=== PATIENT | female | born 1950 | race Caucasian/White ===

== ENCOUNTER → 2017-06-17 | Outpatient (CLI) | payer MEDICARE ==
[2017-06-17 16:44] LABS: Appearance, Urine Clear (Clear); Bilirubin, Urine Neg (Neg); Blood, Urine 2+ (Neg); Color, Urine Yellow (P-Yellow); Glucose Qualitative, Urine Neg (Neg); Ketones, Urine Neg (Neg); Leukocyte Esterase, Urine 1+ (Neg); Nitrite, Urine Pos (Neg); Protein, Urine Neg (Neg); Urobilinogen, Urine NORM (Normal)
[2017-06-17 16:51] LABS: Bacteria Many /hpf; Red Blood Cells, Urine 0-2 /hpf (0-2); Squamous Epithelial Cells Few /hpf (Few)
== END | disposition home or self-care (01) ==
LOC: LAB 15:54 → LAB SHORT 15:54
PROVIDERS: Family Medicine
DX: R31.9 Hematuria, unspecified (principal)
CPT/HCPCS: 81001; 87077; 87086; 87186

== ENCOUNTER → 2017-09-21 | Outpatient (CLI) | payer MEDICARE | END | disposition home or self-care (01) | LOC: LAB 10:30 → LAB SHORT 10:30 | DX: R10.2 Pelvic and perineal pain (principal) | CPT/HCPCS: 87086 ==

== ENCOUNTER → 2018-07-12 | Outpatient (CLI) | payer MEDICARE | END | disposition home or self-care (01) | LOC: LAB 15:41 → LAB SHORT 15:41 | DX: N39.0 Urinary tract infection, site not specified (principal) | CPT/HCPCS: 87077; 87086; 87186 ==

== ENCOUNTER → 2019-07-28 | Outpatient (CLI) | payer MEDICARE ==
[2019-07-29 10:58] LABS: G. vaginalis (DNA Probe) Negative (NEGATIVE); T. vaginalis (DNA Probe) Negative (NEGATIVE)
[2019-07-29 10:59] LABS: Candida species (DNA Probe) Positive (NEGATIVE)
== END | disposition home or self-care (01) ==
LOC: LAB 14:30 → LAB SHORT 14:30
PROVIDERS: Family Medicine
DX: R30.0 Dysuria (principal); R10.2 Pelvic and perineal pain; R35.0 Frequency of micturition; N89.8 Other specified noninflammatory disorders of vagina
CPT/HCPCS: 87086; 87480; 87510; 87660

== ENCOUNTER → 2020-11-20 | Outpatient (CLI) | payer MEDICARE | END | disposition home or self-care (01) | LOC: LAB SHORT 15:00 → LAB 15:00 | DX: N39.0 Urinary tract infection, site not specified (principal) | CPT/HCPCS: 87077; 87086; 87186 ==

== ENCOUNTER → 2020-12-10 | Outpatient (CLI) | payer MEDICARE | END | disposition home or self-care (01) | LOC: LAB 11:10 → LAB SHORT 11:10 | DX: R30.0 Dysuria (principal) | CPT/HCPCS: 87086 ==

== ENCOUNTER 2023-03-04 13:23 | Observation (INO) | payer OTHER ==
[~2023-03-04] VITALS: Ht 170.2 cm; Wt 106.4 kg
[2023-03-04] MEDS ORDERED: JARDIANCE25 MG PO (13:51)
[2023-03-04 14:18] LABS: BASOPHILS ABSOLUTE AUTO 0.05 K/mm3 (0.00-0.23); BASOPHILS PERCENT AUTO 1 % (0-2); EOSINOPHILS ABSOLUTE AUTO 0.18 K/mm3 (0.00-0.68); EOSINOPHILS PERCENT AUTO 3 % (0-6); Hematocrit 42.1 % (33.0-51.0); Hemoglobin 14.7 g/dL (11.5-16.0); IMMATURE GRAN ABSOLUTE AUTO 0.02 K/mm3 (0.00-0.10); IMMATURE GRAN PERCENT AUTO 0 % (0-1); LYMPHOCYTES ABSOLUTE AUTO 2.06 K/mm3 (0.84-5.20); LYMPHOCYTES PERCENT AUTO 31 % (21-46); MONOCYTES ABSOLUTE AUTO 0.42 K/mm3 (0.16-1.47); MONOCYTES PERCENT AUTO 6 % (4-13); Mean Corpuscular HGB 30.5 pg (26.0-34.0); Mean Corpuscular HGB Conc 34.9 g/dL (31.5-36.5); Mean Corpuscular Volume 87 fL (80-100); Mean Platelet Volume 9.9 fL (9.1-12.4); NEUTROPHILS ABSOLUTE AUTO 3.87 K/mm3 (1.96-9.15); NEUTROPHILS PERCENT AUTO 59 % (41-73); Platelet Count 165 K/mm3 (150-400); RDW Coefficient Variation 13.2 % (11.7-14.2); RDW Standard Deviation 41.6 fL (35.1-46.3); Red Blood Cell Count 4.82 M/mm3 (3.80-5.20)
[2023-03-04 14:35] LABS: Base Excess Venous -0.4 mmol/L; Bicarbonate Venous 23.1 mmol/L (24.0-30.0); PCO2 Venous 46.1 mmHg (38-42); pH Blood Venous 7.35 (7.34-7.37)
[2023-03-04 15:18] LABS: Albumin, Blood 3.2 g/dL (3.4-5.0); Albumin/Globulin Ratio 0.9 (0.8-1.8); Bilirubin, Total 0.5 mg/dL (0.1-1.0); Bun/Creatinine Ratio 31.3 (12.0-20.0); Calcium, Blood 9.2 mg/dL (8.5-10.1); Creatinine, Blood 0.7 mg/dL (0.40-1.00); Globulin, Blood 3.6 g/dL (2.2-4.0); Potassium, Blood 4.1 mmol/L (3.5-5.5); Total Protein, Blood 6.8 g/dL (6.4-8.2)
[2023-03-04 16:34] LABS: Source, Urine Clean Catch
[2023-03-04 16:37] LABS: Appearance, Urine Cloudy (Clear); Bilirubin, Urine Neg (Neg); Blood, Urine 1+ (Neg); Color, Urine Yellow (P-Yellow); Glucose Qualitative, Urine 4+ (Neg); Ketones, Urine 3+ (Neg); Leukocyte Esterase, Urine 3+ (Neg); Nitrite, Urine Pos (Neg); Protein, Urine Neg (Neg); Specific Gravity, Urine 1.015 (1.003-1.022); Urobilinogen, Urine NORM (Normal)
[2023-03-04 16:52] LABS: White Blood Cells, Urine TNTC /hpf (0-5)
[2023-03-04 16:54] LABS: Bacteria Many /hpf; Squamous Epithelial Cells Not Seen /hpf (Few)
[2023-03-04] MEDS ORDERED: SEMGLEE (Y100 UNIT/2 SQ (21:14)
[2023-03-04] MEDS ORDERED: NOVOLOG FL100 UNIT/3 (21:15)
[2023-03-04] MEDS ORDERED: [UNRECOGNIZED DRUG - SUPPLY] (21:15)
[2023-03-04 21:29] VITALS: BP 175/72
[2023-03-05 04:18] VITALS: BP 158/65
--- NOTE | 2023-03-05 05:14 | NUR ---
SHIFT SUMMARY NOC ADMIT FROM ED WITH ACUTE CVA. PT DOES NOT EXHIBIT ANY NEUROLOGICAL/MUSCULOSKELETAL DEFICITS. PT IS A/O X 4. INDEPENDENT/CONTINENT IN ROOM. PT HAD CAROTID DUPLEX US PERFORMED, AWAITING RADIOLOGY RESULTS. PT ALSO HAS ECHO AND MRI SCHEDULED FOR TODAY. PT ALSO HAS UTI AND BEING GIVEN IV ABX, WELL 1L X1 NS @ 100 ML/HR. PT ON TELE RUNNING SINUS RHYTHM IN 70'S-80'S. PT IS ON OBSERVATION STATUS AND COULD DISCHARGE HOME PENDING RESULTS OF IMAGING. PT IS CURRENTLY RESTING WITH BED IN LOWEST POSITION, AND CALL LIGHT WITHIN REACH.
[2023-03-05 05:55] LABS: CHOL/HDL RATIO 4.4; Cholesterol 194 mg/dL (50-200); HDL Cholesterol 44 mg/dL (>39); LDL/HDL RATIO 2.8; Low Density Lipoprotein Chol 125 mg/dL (0-110); Triglycerides 127 mg/dL (30-160); Very Low Density Lipoprot Chol 25 mg/dL (6-32)
[2023-03-05 07:50] VITALS: BP 170/70
[2023-03-05 14:43] VITALS: BP 158/77
[2023-03-05] MEDS ORDERED: ACET325 PO (16:21)
[2023-03-05] MEDS ORDERED: ATOR40TA PO (16:22)
[2023-03-05] MEDS ORDERED: ASPI81CH PO (16:22)
[2023-03-05] MEDS ORDERED: Prinivil10 MG PO (16:23)
[2023-03-05] MEDS ORDERED: VISBIOME 112.51 EACH PO (16:24)
[2023-03-05] MEDS ORDERED: GLIP5 PO (16:25)
[2023-03-05] MEDS ORDERED: CEPH500 PO (16:25)
--- NOTE | 2023-03-05 20:02 | NUR ---
SHIFT SUMMARY AND DISCHARGE PATIENT DISCHARGED HOME. PATIENT ALERT AND INTERACTIVE. PATIENT ABLE TO INDEPENDENTLY AMBULATE IN ROOM. PATIENT EVALUATED BY PT,OT, AND SPEECH. MRI, AND ECHO DONE PRIOR TO DISCHARGE. EDUCATION PROVIDED RELATED TO DIABETES AND THE IMPORTANCE OF MANAGING BLOOD SUGARS. PATIENT STATES THAT SHE DOES NOT TAKE MEDICATIONS BECAUSE OF COST AND DOES NOT REGULARLY CHECK BLOOD SUGAR BECAUSE OF COST. DISCHARGE INSTRUCTIONS REVIEWED WITH PATIENT AND . IV DC'D PRIOR TO DISCHARGE. BELONGINGS SENT HOME WITH PATIENT AND ROOM CHECK DONE PRIOR TO DISCHARGE.
[2023-03-10 06:09] LABS: HEMOGLOBIN A1C 12.3 % (4.8-5.6)
== END 2023-03-05 17:34 | disposition home health service (06) ==
LOC: ER 13:23 → MEDS 13:24
PROVIDERS: Family Medicine; Physician Assistant; ADMIT Nurse Practitioner Acute Care
DX: I63.531 Cerebral infarction due to unspecified occlusion or stenosis of right posterior cerebral artery (principal); K21.9 Gastro-esophageal reflux disease without esophagitis; E11.9 Type 2 diabetes mellitus without complications; I10 Essential (primary) hypertension; E78.5 Hyperlipidemia, unspecified; N39.0 Urinary tract infection, site not specified; E66.9 Obesity, unspecified; R47.01 Aphasia
CPT/HCPCS: 36415; 70450; 70551; 80053; 80061; 81001; 82803; 82947; 83036; 85025; 87077; 87086; 87186; 92610; 93005; 93010; 93306; 93880; 96365; 96372; 97116; 97161; 97165; 97535; 99285-25; A9270; G0378; J0696; J1650; J7030

== ENCOUNTER → 2023-09-27 | Outpatient (CLI) | payer OTHER ==
[~2023-09-27] MED LIST: ACET325 PO; ASPI81CH PO; ATOR40TA PO; CEPH500 PO; GLIP5 PO; JARDIANCE25 MG PO; NOVOLOG FL100 UNIT/3; Prinivil10 MG PO; SEMGLEE (Y100 UNIT/2 SQ; VISBIOME 112.51 EACH PO; [UNRECOGNIZED DRUG - SUPPLY]
== END ==
LOC: LAB 16:13 → LAB SHORT 16:13
DX: N39.0 Urinary tract infection, site not specified (principal)
CPT/HCPCS: 87077; 87086; 87186

== ENCOUNTER 2023-11-15 16:04 | Emergency (ER) | payer OTHER ==
[~2023-11-15] VITALS: Ht 172.7 cm; Wt 95.2 kg
[2023-11-15 16:44] LABS: BASOPHILS ABSOLUTE AUTO 0.07 K/mm3 (0.00-0.23); BASOPHILS PERCENT AUTO 1 % (0-2); EOSINOPHILS ABSOLUTE AUTO 0.09 K/mm3 (0.00-0.68); EOSINOPHILS PERCENT AUTO 1 % (0-6); Hemoglobin 14.8 g/dL (11.5-16.0); IMMATURE GRAN PERCENT AUTO 1 % (0-1); LYMPHOCYTES PERCENT AUTO 8 % (21-46); MONOCYTES ABSOLUTE AUTO 0.83 K/mm3 (0.16-1.47); MONOCYTES PERCENT AUTO 7 % (4-13); Mean Corpuscular HGB Conc 35.2 g/dL (31.5-36.5); Mean Corpuscular Volume 88 fL (80-100); Mean Platelet Volume 10.1 fL (9.1-12.4); NEUTROPHILS ABSOLUTE AUTO 10.63 K/mm3 (1.96-9.15); NEUTROPHILS PERCENT AUTO 84 % (41-73); Platelet Count 157 K/mm3 (150-400); RDW Coefficient Variation 13.2 % (11.7-14.2); RDW Standard Deviation 42.5 fL (35.1-46.3); Red Blood Cell Count 4.78 M/mm3 (3.80-5.20); White Blood Cell Count 12.72 K/mm3 (4.00-11.30)
[2023-11-15 17:03] LABS: Albumin, Blood 2.9 g/dL (3.4-5.0); Albumin/Globulin Ratio 0.6 (0.8-1.8); Bun/Creatinine Ratio 32.2 (12.0-20.0); Calcium, Blood 8.8 mg/dL (8.5-10.1); Creatinine, Blood 0.65 mg/dL (0.40-1.00); Globulin, Blood 4.6 g/dL (2.2-4.0); Magnesium, Blood 1.5 mg/dL (1.6-2.4); Potassium, Blood 4.2 mmol/L (3.5-5.5); Total Protein, Blood 7.5 g/dL (6.4-8.2)
[2023-11-15] MEDS ORDERED: Lactated Ringer's 1,000 ML IV ONE ×2 (17:30→21:25)
[2023-11-15 18:36] LABS: Influenza A, PCR NEGATIVE (NEGATIVE); Influenza B, PCR NEGATIVE (NEGATIVE); Resp Syncytial Virus, PCR NEGATIVE (NEGATIVE); SARS-Cov-2 (COVID-19) PCR, MMC NEGATIVE (NEGATIVE)
[2023-11-15 18:39] LABS: Source, Urine Clean Catch
[2023-11-15 18:44] LABS: Appearance, Urine Hazy (Clear); Bilirubin, Urine Neg (Neg); Blood, Urine 5+ (Neg); Color, Urine Yellow (P-Yellow); Glucose Qualitative, Urine 4+ (Neg); Ketones, Urine 4+ (Neg); Leukocyte Esterase, Urine 3+ (Neg); Nitrite, Urine Neg (Neg); Protein, Urine 3+ (Neg); Specific Gravity, Urine 1.025 (1.003-1.022); Urobilinogen, Urine NORM (Normal)
[2023-11-15 18:52] LABS: Bacteria Many /hpf; Squamous Epithelial Cells Few /hpf (Few); White Blood Cells, Urine 50-100 /hpf (0-5)
[2023-11-15] MEDS ORDERED: Acetaminophen 325 MG TABLET PO ONE (19:25)
[2023-11-15] MEDS ORDERED: Insulin Regular 100 Unit/ML 1ML Dose IV ONE (20:30)
[2023-11-15] MEDS ORDERED: CefTRIAXone Sodium 1,000 MG in NS 100 ML IV ONE (21:55)
[2023-11-15 22:57] LABS: Base Excess Venous -6.3 mmol/L; Bicarbonate Venous 20.3 mmol/L (24.0-30.0); PCO2 Venous 29.7 mmHg (38-42)
[2023-11-16] MEDS ORDERED: CEPH500 PO (00:43)
[2023-11-16 00:45] VITALS: BP 144/65
== END 2023-11-16 01:16 | disposition home or self-care (01) ==
LOC: ER 16:04
PROVIDERS: Physician Assistant; Student in an Organized Health Care Education/Training Program
DX: E11.65 Type 2 diabetes mellitus with hyperglycemia (principal); N30.00 Acute cystitis without hematuria; E86.0 Dehydration; Z86.73 Personal history of transient ischemic attack (TIA), and cerebral infarction without residual deficits; Z79.82 Long term (current) use of aspirin; Z79.899 Other long term (current) drug therapy
CPT/HCPCS: 0241U; 70450; 71045; 80053; 81001; 82010; 82803; 82947; 83605; 83690; 83735; 84484; 85025; 87086; 93005; 93010; 96361; 96365; 99285-25; A9270; J0696; J1815; J7120

== ENCOUNTER → 2024-03-27 | Outpatient (CLI) | payer OTHER | LOC: LAB 15:58 → LAB SHORT 15:58 | DX: N39.0 Urinary tract infection, site not specified (principal) | CPT/HCPCS: 87077; 87086; 87186 ==

== ENCOUNTER 2024-04-15 22:26 | Inpatient (IN) | payer OTHER ==
[~2024-04-15] VITALS: Ht 172.7 cm; Wt 102.4 kg
[2024-04-15 22:45] LABS: BASOPHILS ABSOLUTE AUTO 0.04 K/mm3 (0.00-0.23); BASOPHILS PERCENT AUTO 1 % (0-2); EOSINOPHILS PERCENT AUTO 4 % (0-6); Hematocrit 39.4 % (33.0-51.0); Hemoglobin 14.4 g/dL (11.5-16.0); IMMATURE GRAN ABSOLUTE AUTO 0.02 K/mm3 (0.00-0.10); IMMATURE GRAN PERCENT AUTO 0 % (0-1); LYMPHOCYTES ABSOLUTE AUTO 1.52 K/mm3 (0.84-5.20); LYMPHOCYTES PERCENT AUTO 33 % (21-46); MONOCYTES PERCENT AUTO 9 % (4-13); Mean Corpuscular HGB 31.4 pg (26.0-34.0); Mean Corpuscular HGB Conc 36.5 g/dL (31.5-36.5); Mean Corpuscular Volume 86 fL (80-100); Mean Platelet Volume 10.1 fL (9.1-12.4); NEUTROPHILS ABSOLUTE AUTO 2.39 K/mm3 (1.96-9.15); NEUTROPHILS PERCENT AUTO 52 % (41-73); Platelet Count 154 K/mm3 (150-400); RDW Coefficient Variation 14.1 % (11.7-14.2); RDW Standard Deviation 43.7 fL (35.1-46.3); Red Blood Cell Count 4.59 M/mm3 (3.80-5.20); White Blood Cell Count 4.57 K/mm3 (4.00-11.30)
[2024-04-15] MEDS ORDERED: Lactated Ringer's 1,000 ML IV ONE (22:45)
[2024-04-15 23:11] LABS: International Normalized Ratio 0.96; Prothrombin Time Results 10.3 Sec (9.7-11.5)
[2024-04-15 23:22] LABS: Albumin, Blood 3.4 g/dL (3.4-5.0); Albumin/Globulin Ratio 0.9 (0.8-1.8); Beta-hydroxybutyrate 2.6 mg/dL (0.2-2.8); Bilirubin, Total 0.7 mg/dL (0.1-1.0); Bun/Creatinine Ratio 38.1 (12.0-20.0); Calcium, Blood 8.8 mg/dL (8.5-10.1); Creatinine, Blood 0.6 mg/dL (0.40-1.00); Free Thyroxine 1.1 ng/dL (0.70-1.60); Globulin, Blood 3.6 g/dL (2.2-4.0); Phosphorus, Blood 2.5 mg/dL (2.5-4.9); Potassium, Blood 4.4 mmol/L (3.5-5.5); Thyroid Stimulating Hormone 3.5 uIU/mL (0.360-4.800)
[2024-04-15 23:23] LABS: Base Excess Venous 0.7 mmol/L; Bicarbonate Venous 24.6 mmol/L (24.0-30.0); pH Blood Venous 7.41 (7.34-7.37)
[2024-04-15 23:32] LABS: Source, Urine Clean Catch
[2024-04-15] MEDS ORDERED: Labetalol HCL 5 MG/ML 4ML Injection (Single Dose) IV ONE (23:35)
[2024-04-15 23:36] LABS: Bilirubin, Urine Neg (Neg); Blood, Urine Neg (Neg); Glucose Qualitative, Urine 4+ (Neg); Ketones, Urine Neg (Neg); Leukocyte Esterase, Urine 1+ (Neg); Nitrite, Urine Neg (Neg); Protein, Urine 2+ (Neg); Urobilinogen, Urine NORM (Normal)
[2024-04-15 23:46] LABS: Appearance, Urine Clear (Clear); Color, Urine Pale Yellow (P-Yellow)
[2024-04-15 23:47] LABS: Bacteria Rare /hpf; Red Blood Cells, Urine Not Seen /hpf (0-2); Squamous Epithelial Cells Few /hpf (Few); White Blood Cells, Urine 0-2 /hpf (0-5)
[2024-04-15] MEDS ORDERED: HydrALAZINE HCl 20 MG / ML 1ML Vial IV ONE (23:55)
[2024-04-16] VITALS (33 sets, daily range): BP systolic 137–211; BP diastolic 72–111
[2024-04-16] MEDS ORDERED: Labetalol HCL 5 MG/ML 4ML Injection (Single Dose) IV PRN (00:55)
[2024-04-16] MEDS ORDERED: FLU VACC TS2024-25(6MOS UP)/PF 45 MCG/0.5 ML SYRINGE IM ONE (00:55)
[2024-04-16] MEDS ORDERED: Ondansetron HCl 2 MG / ML 2ML Vial IV PRN (00:55)
[2024-04-16] MEDS ORDERED: Acetaminophen 325 MG TABLET PO PRN (00:55)
[2024-04-16] MEDS ORDERED: NiCARdipine HCL 50 MG in NS 250 ML IV SCH (02:50)
[2024-04-16 03:39] LABS: BASOPHILS ABSOLUTE AUTO 0.04 K/mm3 (0.00-0.23); BASOPHILS PERCENT AUTO 1 % (0-2); EOSINOPHILS PERCENT AUTO 2 % (0-6); Hematocrit 38.4 % (33.0-51.0); IMMATURE GRAN ABSOLUTE AUTO 0.02 K/mm3 (0.00-0.10); IMMATURE GRAN PERCENT AUTO 0 % (0-1); LYMPHOCYTES ABSOLUTE AUTO 1.55 K/mm3 (0.84-5.20); LYMPHOCYTES PERCENT AUTO 24 % (21-46); MONOCYTES ABSOLUTE AUTO 0.56 K/mm3 (0.16-1.47); MONOCYTES PERCENT AUTO 9 % (4-13); Mean Corpuscular HGB 31.5 pg (26.0-34.0); Mean Corpuscular HGB Conc 36.5 g/dL (31.5-36.5); Mean Corpuscular Volume 87 fL (80-100); Mean Platelet Volume 10.3 fL (9.1-12.4); NEUTROPHILS ABSOLUTE AUTO 4.32 K/mm3 (1.96-9.15); NEUTROPHILS PERCENT AUTO 66 % (41-73); Platelet Count 134 K/mm3 (150-400); RDW Standard Deviation 43.8 fL (35.1-46.3); Red Blood Cell Count 4.44 M/mm3 (3.80-5.20); White Blood Cell Count 6.59 K/mm3 (4.00-11.30)
[2024-04-16 03:58] LABS: Magnesium, Blood 1.6 mg/dL (1.6-2.4)
[2024-04-16 03:59] LABS: Alanine Aminotransfer (ALT/SGP 18 U/L (12-78); Albumin, Blood 3.3 g/dL (3.4-5.0); Alk Phos 125 U/L (50-136); Anion Gap 12 mmol/L (3-11); Aspartate Aminotrans (AST/SGOT 13 U/L (12-37); Bilirubin, Total 0.7 mg/dL (0.1-1.0); Blood Urea Nitrogen 18 mg/dL (8-24); Bun/Creatinine Ratio 33.9 (12.0-20.0); CHOL/HDL RATIO 3.5; CO2, Blood 24 mmol/L (21-32); Chloride, Blood 107 mmol/L (98-108); Cholesterol 194 mg/dL (50-200); Creatinine, Blood 0.53 mg/dL (0.40-1.00); Globulin, Blood 3.3 g/dL (2.2-4.0); Glomerular Filtration Rate 98 (60-); Glucose, Blood 402 mg/dL (70-99); HDL Cholesterol 55 mg/dL (>39); LDL/HDL RATIO 2.3; Low Density Lipoprotein Chol 124 mg/dL (0-110); Potassium, Blood 3.4 mmol/L (3.5-5.5); Sodium, Blood 140 mmol/L (136-145); Total Protein, Blood 6.6 g/dL (6.4-8.2); Triglycerides 73 mg/dL (30-160); Very Low Density Lipoprot Chol 14 mg/dL (6-32)
[2024-04-16] MEDS ORDERED: Potassium Chloride 40 MEQ IV ONE (04:10)
[2024-04-16] MEDS ORDERED: Potassium Chloride 40 MEQ in NS 250 ML IV ONE (04:15)
[2024-04-16] MEDS ORDERED: Insulin Regular 100 UNIT/ML 10ML Vial SC SCH (06:00)
--- NOTE | 2024-04-16 06:08 | NUR ---
SHIFT SUMMARY PT CAME TO ICU FOR CVA AT 0220 THIS SHIFT. AT TIME OF ARRIVAL, SHE WAS UNABLE TO ANSWER QUESTIONS APPROPRIATLY, INTERMITTENT R SIDED DEFICITS, A/OX1 (SELF). AT THIS TIME SHE IS ABLE TO RESPOND TO MORE QUESTIONS APPROPRIATLY AND ANSWER IN MORE WORDS THAN JUST "YES" OR "NO". ABLE TO FOLLOW COMMANDS. ON ROOM AIR, SATS > 94%. ON KITCHEN UTILITY ASSOCIATE, HR 90-100'S, MAPS > 65, SBP 160-180'S. SBP GOAL IS 180'S PER DR. SOLO. NICARDIPINE WAS STARTED AND ON FOR LESS THAN 1 HOUR. CURRENTLY OFF. KCL INFUSING FOR REPLACEMENT. BLOOD SUGARS HAVE BEEN IN THE 300'S SINCE ARRIVAL TO ICU. PT HAD 1 BM THIS SHIFT. PUREWICK AND ATTENDS IN PLACE, GOOD UOP NOTED. TWO PIVS PLACED IN ED THAT DRAW BACK AND FLUSH. PT WAS UNABLE TO PROVIDE HEALTH HX OR MED REC R/T AMS. NO FAMILY AT BEDSIDE TO OBTAIN INFORMATION FROM.
[2024-04-16] MEDS ORDERED: Enoxaparin 40 MG/0.4 ML SYR SC SCH (09:00)
[2024-04-16] MEDS ORDERED: Atorvastatin 40 MG Tab PO SCH (09:00)
[2024-04-16] MEDS ORDERED: Aspirin 81 MG Chew PO SCH (09:00)
[2024-04-16] MEDS ORDERED: Insulin Human Lispro 100 Units/ML 3ML Syringe SC SCH (13:00)
--- NOTE | 2024-04-16 20:54 | NUR ---
START SHIFT 1999 - REPORT RECIEVED FROM DAY SHIFT RN. PT STATES THAT SHE FEELS SHE NEEDS TO HAVE A BOWEL MOVEMENT. PT PUT ONTO BED MANCUSO AND ULTIMATELY WAS UNABLE TO HAVE BOWEL MOVEMENT AT THIS TIME. WILL CONTINUE TO MONITOR THROUGHOUT SHIFT.
[2024-04-17] VITALS (25 sets, daily range): BP systolic 125–202; BP diastolic 62–159
[2024-04-17 03:52] LABS: BASOPHILS ABSOLUTE AUTO 0.03 K/mm3 (0.00-0.23); BASOPHILS PERCENT AUTO 1 % (0-2); EOSINOPHILS ABSOLUTE AUTO 0.22 K/mm3 (0.00-0.68); EOSINOPHILS PERCENT AUTO 4 % (0-6); Hematocrit 39.1 % (33.0-51.0); Hemoglobin 13.7 g/dL (11.5-16.0); IMMATURE GRAN ABSOLUTE AUTO 0.02 K/mm3 (0.00-0.10); IMMATURE GRAN PERCENT AUTO 0 % (0-1); LYMPHOCYTES PERCENT AUTO 41 % (21-46); MONOCYTES ABSOLUTE AUTO 0.59 K/mm3 (0.16-1.47); MONOCYTES PERCENT AUTO 12 % (4-13); Mean Corpuscular HGB 30.8 pg (26.0-34.0); Mean Corpuscular Volume 88 fL (80-100); Mean Platelet Volume 9.5 fL (9.1-12.4); NEUTROPHILS ABSOLUTE AUTO 2.11 K/mm3 (1.96-9.15); NEUTROPHILS PERCENT AUTO 42 % (41-73); Platelet Count 134 K/mm3 (150-400); RDW Coefficient Variation 14.4 % (11.7-14.2); RDW Standard Deviation 45.8 fL (35.1-46.3); Red Blood Cell Count 4.45 M/mm3 (3.80-5.20); White Blood Cell Count 5.07 K/mm3 (4.00-11.30)
[2024-04-17 03:59] LABS: Calcium, Blood 8.9 mg/dL (8.5-10.1); Creatinine, Blood 0.62 mg/dL (0.40-1.00); Potassium, Blood 3.6 mmol/L (3.5-5.5)
[2024-04-17] MEDS ORDERED: Losartan Potassium 50 MG Tab PO SCH (09:00)
[2024-04-17] MEDS ORDERED: HydroCHLOROthiazide 25 mg Tab PO SCH (11:00)
[2024-04-17] MEDS ORDERED: Insulin Human Lispro 100 Units/ML 3ML Syringe SC SCH (12:00)
[2024-04-17] MEDS ORDERED: Insulin Glargine-Yfgn 100 Unit/mL 3 ML SYR SC SCH (21:00)
[2024-04-18] VITALS (56 sets, daily range): BP systolic 96–166; BP diastolic 59–123
[2024-04-18 04:04] LABS: BASOPHILS ABSOLUTE AUTO 0.05 K/mm3 (0.00-0.23); BASOPHILS PERCENT AUTO 1 % (0-2); EOSINOPHILS ABSOLUTE AUTO 0.27 K/mm3 (0.00-0.68); EOSINOPHILS PERCENT AUTO 5 % (0-6); Hematocrit 39.5 % (33.0-51.0); Hemoglobin 14.2 g/dL (11.5-16.0); IMMATURE GRAN ABSOLUTE AUTO 0.02 K/mm3 (0.00-0.10); IMMATURE GRAN PERCENT AUTO 0 % (0-1); LYMPHOCYTES ABSOLUTE AUTO 2.36 K/mm3 (0.84-5.20); LYMPHOCYTES PERCENT AUTO 39 % (21-46); MONOCYTES PERCENT AUTO 10 % (4-13); Mean Corpuscular HGB 31.4 pg (26.0-34.0); Mean Corpuscular HGB Conc 35.9 g/dL (31.5-36.5); Mean Corpuscular Volume 87 fL (80-100); Mean Platelet Volume 10.5 fL (9.1-12.4); NEUTROPHILS ABSOLUTE AUTO 2.71 K/mm3 (1.96-9.15); NEUTROPHILS PERCENT AUTO 45 % (41-73); Platelet Count 125 K/mm3 (150-400); RDW Coefficient Variation 14.4 % (11.7-14.2); RDW Standard Deviation 45.5 fL (35.1-46.3); Red Blood Cell Count 4.52 M/mm3 (3.80-5.20); White Blood Cell Count 6.01 K/mm3 (4.00-11.30)
[2024-04-18 04:23] LABS: Calcium, Blood 9.1 mg/dL (8.5-10.1); Creatinine, Blood 0.78 mg/dL (0.40-1.00); Potassium, Blood 3.6 mmol/L (3.5-5.5)
--- NOTE | 2024-04-18 06:24 | NUR ---
SHIFT SUMMARY PT BEGAN NIGHT WITH ELEVATED BLOOD PRESSURE AND WAS PUT ON NICARDIPINE SHORTLY AFTER THE START OF SHIFT. PT HAS OTHERWISE PROGRESSED THROUGH SHIFT WITHOUT ISSUE. PT HAS REMAINED ALERT AND ORIENTED, ABLE TO MOVE ALL EXTREMETIES WITH EQUAL STRENGTH AND WAS ABLE TO SLEEP A GOOD DEAL THROUGHT THE NIGHT. PT REMAINS ON ROOM AIR AND HAS NOT HAD SIGNIFICANT CHANGES IN HEART RATE OR RHYTHM. PT HAS CONTINUED TO USE PUREWICK AND HAS NOT HAD A BOWEL MOVEMENT. PT HAS EXPRESSED INTEREST IN TRYING TO AMBULATE AND IS HOPEFUL TO PROGRESS MORE THROUGH THE DAY. WILL CONTINUE TO MONITOR UNTIL REPORT IS PASSED TO THE DAY SHIFT.
[2024-04-18] MEDS ORDERED: Losartan Potassium 50 MG Tab PO SCH (09:00)
[2024-04-18] MEDS ORDERED: HydroCHLOROthiazide 25 mg Tab PO SCH (09:00)
--- NOTE | 2024-04-18 09:02 | NUR ---
ASSUMED PT CARE AT 0700 BEDSIDE REPORT. PT AWAKE, ALERT AND ORIENTED TO PERSON PLACE TIME SITUATION. PT HAVING SOME SLOW RESPONSE WITH CONVERSATION AND DOES AT TIMES GET OFF TOPIC. PT HAS AN INCONT. BOWEL MOVEMENT AND WAS CLEANED UP THEN WAS ABLE TO SIT UP, DANGLE, STAND AND AMBULATE WITH SOME CONTACT GAURD ASSIT TO THE CHAIR NEAR BED. PT HAD ORTHO STATIC BP'S DONE, SEE NOTES. PT WAS ABLE TO HAVE THE NIPRIDE DRIP TURNED OFF SINCE HER BP WAS BELOW 160 THIS AM. ALSO GAVE PT HER PO MEDICATION WHERE HER COZAAR AND HCTZ WERE INCREASED IN DOSE BY DR HILARIO THIS AM. PT ABLE TO EAT HER BREAKFAST. SHE STATED SHE HAS NO TASTE OR SMELL SINCE SHE GOT COVID VIRUS A FEW YEARS AGO. PT NOT COMPLAINING OF ANY PAIN OR NAUZEA THIS AM. PT VS STABLE WITH A SINUS RHYTHM SEE CHART, PT IS ALSO AFEBRILE. HER TWO PIV'S ARE PATENT AND ABLE TO BE FLUSHED. THE LEFT AC IV WAS SLUGGISH BUT THEN ABLE TO GET FLUSHED. NO PAIN OR TENDERNESS WITH IV'S. PT HAS SOME SLIGHT EDEMA T/O. PT STATED SHE HAS A HEART MURMUR. HEART TONES WERE DISTANT TO THIS RN EXCEPT FOR THE PULMONIC VALVE WHICH WAS A SOLID S1S2 HEART TONE. LUNGS WERE CLEAR T/O ON ROOM AIR. ABD + BT X4 QUAD'S. NO ABD TENDERNESS NOTED. PT EAGER TO GO HOME. DID NEURO CHECK AND ONLY DEFICITS NOTED WITH THE WORD SEARCHING AT TIMES AND HER RIGHT EYE WAS NOT ABLE TO STATE WHAT FINGERS WERE HELD INFRONT OF HER WHEN THE LEFT EYE WAS COVERED. DR HILARIO WAS NOTIFIED. WILL CONTINUE TO CARE AND ASSESS AND MANAGE PATIENT PER 'S ORDERS.
--- NOTE | 2024-04-18 18:41 | NUR ---
END OF SHIFT NOTE PT HAS BEEN UP AND DOWN FROM BED TO CHAIR TODAY FOR MEALS. SHE HAS HAD MORE SBP THAT WERE BELOW SYSTOLIC 160 TODAY WITH THE CHANGES OF CORAAG AND HCTZ DOSES AND OFF NIPRIDE GTT SINCE THIS AM OF 0830 SHE HAS IS DOING WELL THUS FAR. SHE IS WALKING WITH A ONE PERSON STAND BY ASSIT TO THE BATHROOM TOILET. SHE HAS STOOLED TWICE TODAY AND VOIDED UP TO 4-5 TIMES. HER FAMILY HAS BEEN IN BY HER BEDSIDE T/O THE DAY. NO NEW NEURO CHANGES SINCE THIS AM. WILL GIVE REPORT TO NEXT SHIFT TO RESUME CARE.
--- NOTE | 2024-04-18 20:58 | NUR ---
ASSUMPTION OF CARE: ASSUMED CARE OF PT AT 1915. PT ALERT AND ORIENTED, FOLLOWS DIRECTION AND MAKES NEEDS KNOWN. PT MOVING ALL EXTREMETIES EQUALLY. ON RA WITH SPO2 MID TO HIGH 90'S. DENIES SOB. LUNGS CLEAR. TILE CLASSIFIER IN PLACE, SR WITH HR 70'S. SBP 130'S. DENIES CP/PRESSURE. PIVS INTACT AND SALINE LOCKED. PT DENIES N/V. TOLERATING PO INTAKE. MOVING IN BED IND. CALL LIGHT IN REACH.
[2024-04-19] VITALS (29 sets, daily range): BP systolic 131–185; BP diastolic 64–107
[2024-04-19 03:39] LABS: BASOPHILS ABSOLUTE AUTO 0.05 K/mm3 (0.00-0.23); BASOPHILS PERCENT AUTO 1 % (0-2); EOSINOPHILS ABSOLUTE AUTO 0.28 K/mm3 (0.00-0.68); EOSINOPHILS PERCENT AUTO 5 % (0-6); Hematocrit 37.6 % (33.0-51.0); Hemoglobin 13.4 g/dL (11.5-16.0); IMMATURE GRAN ABSOLUTE AUTO 0.02 K/mm3 (0.00-0.10); IMMATURE GRAN PERCENT AUTO 0 % (0-1); LYMPHOCYTES ABSOLUTE AUTO 2.43 K/mm3 (0.84-5.20); LYMPHOCYTES PERCENT AUTO 41 % (21-46); MONOCYTES ABSOLUTE AUTO 0.64 K/mm3 (0.16-1.47); MONOCYTES PERCENT AUTO 11 % (4-13); Mean Corpuscular HGB 31.5 pg (26.0-34.0); Mean Corpuscular HGB Conc 35.6 g/dL (31.5-36.5); Mean Corpuscular Volume 89 fL (80-100); Mean Platelet Volume 10.5 fL (9.1-12.4); NEUTROPHILS ABSOLUTE AUTO 2.52 K/mm3 (1.96-9.15); NEUTROPHILS PERCENT AUTO 43 % (41-73); Platelet Count 126 K/mm3 (150-400); RDW Coefficient Variation 14.2 % (11.7-14.2); RDW Standard Deviation 45.7 fL (35.1-46.3); Red Blood Cell Count 4.25 M/mm3 (3.80-5.20); White Blood Cell Count 5.94 K/mm3 (4.00-11.30)
[2024-04-19 03:59] LABS: Bun/Creatinine Ratio 34.7 (12.0-20.0); Calcium, Blood 9.2 mg/dL (8.5-10.1); Creatinine, Blood 0.92 mg/dL (0.40-1.00); Potassium, Blood 3.8 mmol/L (3.5-5.5)
--- NOTE | 2024-04-19 05:43 | NUR ---
SHIFT SUMMARY: PT REMAINED ALERT AND ORIENTED T/O THE NIGHT. ABLE TO REST. NO ACUTE EVENTS OVERNIGHT. REMAINS ON RA WITH SPO2 MID TO HIGH 90'S. DENIES SOB. J2EE DEVELOPER IN PLACE, SR WITH HR 70'S. SBP 140-150'S. DENIES CHEST PAIN/PRESSURE. ABLE TO AMBULATE TO THE TOILET WITH MINIMAL ASSIST, VOIDING YELLOW URINE. NO BM THIS SHIFT. PIVS INTACT AND SALINE LOCKED. TOLERATING PO INTAKE WITH NO GI COMPLAINTS. BED LOW AND LOCKED, CALL LIGHT IN REACH.
[2024-04-19] MEDS ORDERED: Insulin NPH 100 Unit / ML 10ML Vial SC ONE (09:00)
[2024-04-19] MEDS ORDERED: AmLODIPine Besylate 5 MG Tab PO SCH (10:00)
--- NOTE | 2024-04-19 12:36 | NUR ---
REASSESSMENT PT HAS BEEN ALERT AND ORIENTED THIS MORNING. SHE SOMETIMES LOSES HER TRAIN OF THOUGHT, BUT IS EASILY REDIRECTED BACK TO IT. 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 PT WAS HYPERTENSIVE AFTER HER MORNING MEDS. PRN LABETALOL GIVEN TO BRING SBP BELOW [address] HILARIO NOTIFIED. HE ORDERED AMLODIPINE, WHICH AWAS GIVEN, ALONG WITH TYLENOL FOR A ENCARNACION. SBP CURRENTLY 147. SR. RA WITH SPO2 91%. LUNGS CLEAR. EATING WELL. HAS BEEN UP TO THE CHAIR AND BACK TO BED WITH MINIMAL ASSIST. PT'S SON VISITED AND WAS UPDATED.
[2024-04-19] MEDS ORDERED: OMEP20ER PO (13:04)
[2024-04-19] MEDS ORDERED: ARNUITY ELLIP200 MCG (13:06)
[2024-04-19] MEDS ORDERED: INSULANPEN SC (13:07)
--- NOTE | 2024-04-19 15:55 | NUR ---
SPOKE WITH DR. HILARIO AND RECEIVED ORDERS FOR PT TO BE MED TELE STATUS.
--- NOTE | 2024-04-19 17:02 | NUR ---
SHIFT SUMMARY PT HAS REMAINED ALERT AND ORIENTED. CONTINUES TO HAVE NO NEUROLOGICAL DEFICITS OTHER THAN OCCASIONALLY HAVING TROUBLE FINDING WORDS OR LOSING HER TRAIN OF THOUGHT. SBP HAS BEEN INT HE 140S AND 150S FOR MOST OF THE AFTERNOON. SR, LUNGS CLEAR, RA. EATING WELL, HAS BEEN UP TO THE BATHROOM A FEW TIMES. SHE SAT UP IN THE CHAIR THIS MORNING FOR ABOUT AN HOUR, BUT SAID IT HURT HER BACK SITTING UP. PT'S AT THE BEDSIDE THIS EVENING. MED FLOOR STATUS, AWAITING BED ASSIGNMENT.
--- NOTE | 2024-04-19 18:47 | NUR ---
TRANSFER PT TRANSFERRED UP TO MEDICAL FLOOR, RM [id number]. REPORT GIVEN TO KAYA TORRES. PT TRANSFERRED VIA . ALL BELONGINGS MOVED WITH PT. PT TOLERATED TRANSFER WELL.
--- NOTE | 2024-04-19 18:49 | NUR ---
PT TRANSFERED TO MEDICAL FLOOR AT 1840HRS VIA WHEELCHAIR. STOOD TO TRANSFER INTO BED. TELEMETRY BOX ORDERED.
[2024-04-19] MEDS ORDERED: Insulin Glargine-Yfgn 100 Unit/mL 3 ML SYR SC SCH (21:00)
[2024-04-20 00:17] VITALS: BP 144/73
[2024-04-20 04:18] VITALS: BP 114/63
--- NOTE | 2024-04-20 04:56 | NUR ---
SHIFT SUMMARY; PATIENT SLEPT IN LONG INTERVALS. VSS TELE SR @ 79.
[2024-04-20 08:38] VITALS: BP 172/94
[2024-04-20] MEDS ORDERED: Insulin Human Lispro 100 Units/ML 3ML Syringe SC SCH (11:30)
[2024-04-20] MEDS ORDERED: AMLO5 PO (14:23)
[2024-04-20] MEDS ORDERED: LOSARTAN-HCTZ1 EACH PO (14:24)
--- NOTE | 2024-04-20 15:05 | NUR ---
DISCAHRGED HOME, INSTRUCTION GIVEN TO PATIENT AND , BOTH STATED UNDERSTANDING OF MEDICATIONS, GLUCOMETER USE, MEDICATIONS, AND FOLLOW UP NEEDS. BOTH DENIED FURTHER QUESTIONS, LEFT VIA W/C
== END 2024-04-20 14:57 | disposition home health service (06) | DRG 65 ==
LOC: ER 22:26 → ICUE 22:27 → MEDS 04-19 18:42
PROVIDERS: Family Medicine; Physician Assistant; Student in an Organized Health Care Education/Training Program; ADMIT Student in an Organized Health Care Education/Training Program
DX: I63.81 Other cerebral infarction due to occlusion or stenosis of small artery (principal); G81.91 Hemiplegia, unspecified affecting right dominant side; I16.1 Hypertensive emergency; E11.65 Type 2 diabetes mellitus with hyperglycemia; R29.716 NIHSS score 16; E66.01 Morbid (severe) obesity due to excess calories; E78.5 Hyperlipidemia, unspecified; K21.9 Gastro-esophageal reflux disease without esophagitis; R47.01 Aphasia; E87.6 Hypokalemia; I16.0 Hypertensive urgency; I65.21 Occlusion and stenosis of right carotid artery; D69.6 Thrombocytopenia, unspecified; Z90.49 Acquired absence of other specified parts of digestive tract; Z90.710 Acquired absence of both cervix and uterus; Z98.890 Other specified postprocedural states; Z68.35 Body mass index [BMI] 35.0-35.9, adult; Z28.29 Immunization not carried out because of patient decision for other reason
CPT/HCPCS: 36415; 70450; 70496; 70498; 70551; 71045; 80048; 80053; 80061; 81001; 82010; 82803; 82947; 83735; 84100; 84439; 84443; 85025; 85610; 85730; 93005; 93010; 93880; 96361; 96365; 96366; 96372; 96374-59; 96375; 99285-25; A9270; G0378; J0360; J1650; J1815; J2405; J3480; J7050; J7120; Q9967

== ENCOUNTER 2024-05-08 12:12 | Emergency (ER) | payer OTHER ==
[~2024-05-08] VITALS: Ht 170.2 cm; Wt 101.6 kg
[~2024-05-08 12:12] MED LIST changes: +AMLO5 PO; +ARNUITY ELLIP200 MCG; +INSULANPEN SC; +LOSARTAN-HCTZ1 EACH PO; +OMEP20ER PO
[2024-05-08 13:03] VITALS: BP 158/88
== END 2024-05-08 14:21 | disposition home or self-care (01) ==
LOC: ER 12:12
DX: S20.211A Contusion of right front wall of thorax, initial encounter (principal); R51.9 Headache, unspecified; E11.9 Type 2 diabetes mellitus without complications; I10 Essential (primary) hypertension; E78.5 Hyperlipidemia, unspecified; K21.9 Gastro-esophageal reflux disease without esophagitis; Z86.73 Personal history of transient ischemic attack (TIA), and cerebral infarction without residual deficits; Z79.84 Long term (current) use of oral hypoglycemic drugs; Z79.82 Long term (current) use of aspirin; Z79.899 Other long term (current) drug therapy; W10.9XXA Fall (on) (from) unspecified stairs and steps, initial encounter
CPT/HCPCS: 71101; 99283-25

== ENCOUNTER → 2024-07-24 | Outpatient (CLI) | payer OTHER ==
[2024-07-24 16:52] LABS: Bacterial Vaginosis PCR Negative (NEGATIVE); Candida Group, PCR NOT DETECTED (NOT DETECT); Candida glabrata-krusei, PCR NOT DETECTED (NOT DETECT)
== END ==
LOC: LAB SHORT 14:30 → LAB 14:30
PROVIDERS: Advanced Practice Midwife
DX: N76.0 Acute vaginitis (principal)
CPT/HCPCS: 81515